=== PATIENT | male | born 2000 | race Caucasian/White ===

== ENCOUNTER 2018-02-01 21:21 | Emergency (ER) | payer OTHER ==
--- NOTE | 2018-02-01 21:43 | ED ---
Laceration/Wound HPI - HPI Summary HPI Summary: 17-year-old male presents with left thumb injury. He states he cut it on a knife. He states that it bleed for an hour. Is not actively bleeding. No numbness or tingling. No other injury. Immunizations are up-to-date. Has full range of motion of his finger. No foreign body. - History of Current Complaint Stated Complaint: LT THUMB LAC Time Seen by Provider: 02/01/18 21:29 Pain Intensity: 1 - Allergy/Home Medications Allergies/Adverse Reactions: Allergies Allergy/AdvReac Type Severity Reaction Status Date / Time No Known Allergies Allergy Verified 02/01/18 21:26 Home Medications: Home Medications NK [No Home Medications Reported] 02/01/18 [History Confirmed 02/01/18] PMH/Surg Hx/FS Hx/Imm Hx Endocrine/Hematology History: Denies: Hx Anticoagulant Therapy Cardiovascular History: Denies: Hx Myocardial Infarction Infectious Disease History: No Infectious Disease History: Denies: Traveled Outside the [place] in Last 30 Days - Family History Known Family History: Negative: Hypertension - Social History Alcohol Use: None Substance Use Type: Reports: None Smoking Status (MU): Never Smoked Tobacco Review of Systems Negative: Fever Negative: Chest Pain Negative: Shortness Of Breath Positive: Other - left thumb lac All Other Systems Reviewed And Are Negative: Yes Physical Exam Triage Information Reviewed: Yes Vital Signs On Initial Exam: Initial Vitals Temp Pulse Resp BP Pulse Ox 96.9 F 94 18 149/80 96 02/01/18 21:24 02/01/18 21:24 02/01/18 21:24 02/01/18 21:24 02/01/18 21:24 Vital Signs Reviewed: Yes Appearance: Positive: Well-Appearing Skin: Positive: Warm, Dry, Other - 1 cm superficial laceration to left thumb Head/Face: Positive: Normal Head/Face Inspection Eyes: Positive: Normal, Conjunctiva Clear ENT: Positive: Pharynx normal Respiratory/Lung Sounds: Positive: Clear to Auscultation, Breath Sounds Present Cardiovascular: Positive: Normal, RRR Musculoskeletal: Positive: Strength/ROM Intact - left thumb, Other - capillary refill<2secs Neurological: Positive: Normal Psychiatric: Positive: Normal Procedures - Laceration/Wound Repair 1 Location: Other - left thumb Description: Linear Length, Depth and Shape: 1cm superficial Irrigated w/ Saline (ccs): 30 Laceration/Wound Explored: no foreign body removed Closure: Skin Adhesive, SteriStrips Diagnostics - Vital Signs Vital Signs Temp Pulse Resp BP Pulse Ox 02/01/18 21:24 96.9 F 94 18 149/80 96 - Laboratory Lab Statement: Any lab studies that have been ordered have been reviewed, and results considered in the medical decision making process. Laceration Repair Course/Dx - Course Course Of Treatment: 17-year-old male presents with left thumb injury. He states he cut it on a knife. He states that it bleed for an hour. Is not actively bleeding. No numbness or tingling. No other injury. Immunizations are up-to-date. Has full range of motion of his finger. No foreign body. On exam his 1 tenderness superficial laceration to left thumb. Clean area and place glue. Told to keep area clean and dry. Patient understands agrees with plan. - Differential Dx Differental Diagnoses: Abrasion, Avulsion, Laceration - Clinical Impression Provider Diagnoses: Laceration of left thumb Discharge - Sign-Out/Discharge Documenting (check all that apply): Patient Departure - Discharge Plan Condition: Good Disposition: HOME Patient Education Materials: Skin Adhesive Care (ED) Additional Instructions: Take Tylenol or ibuprofen for pain as needed every 6 hours Keep dry for 24 hours Glue will fall off on own Avoid scrubbing area Return to ED if develop any signs of infection or any new or worsening symptoms - Billing Disposition and Condition Condition: GOOD Disposition: Home
[2018-02-01 21:53] VITALS: BP 00/0
== END 2018-02-01 21:50 | disposition home or self-care (01) ==
LOC: ED 21:21
DX: S61.012A Laceration without foreign body of left thumb without damage to nail, initial encounter (principal); W26.0XXA Contact with knife, initial encounter; Y93.9 Activity, unspecified; Y92.9 Unspecified place or not applicable
CPT/HCPCS: 12001; 99281